=== PATIENT | female | born 1970 | race Caucasian/White ===

== ENCOUNTER 2019-08-10 20:55 | Emergency (ER) | payer MEDICAID ==
[~2019-08-10] VITALS: Ht 165.1 cm; Wt 63.6 kg
[2019-08-10 20:58] VITALS: BP 108/71
[2019-08-10] MEDS ORDERED: rabies immune globulin/PF 150 unit/ml inj IMVAC STA (21:27)
[2019-08-10] MEDS ORDERED: rabies vaccine (PCEC)/PF 2.5 unit kit IMVAC ONE (21:30)
[2019-08-10] MEDS ORDERED: AMOX-422 PO (21:35)
== END 2019-08-10 22:24 | disposition home or self-care (01) ==
LOC: ER 20:57
DX: S61.237A Puncture wound without foreign body of left little finger without damage to nail, initial encounter (principal); Z23 Encounter for immunization; Z56.0 Unemployment, unspecified; Z88.8 Allergy status to other drugs, medicaments and biological substances; Z79.899 Other long term (current) drug therapy; W53.01XA Bitten by mouse, initial encounter; Y93.89 Activity, other specified; Y92.098 Other place in other non-institutional residence as the place of occurrence of the external cause; Y99.8 Other external cause status
CPT/HCPCS: 90375; 90471; 90675; 96372; 99283

== ENCOUNTER 2019-08-12 09:50 | Emergency (ER) | payer MEDICAID ==
[~2019-08-12 09:50] MED LIST: AMOX-422 PO
[2019-08-12] MEDS ORDERED: rabies vaccine (PCEC)/PF 2.5 unit kit IMVAC ONE (10:00)
== END 2019-08-12 10:35 | disposition home or self-care (01) ==
LOC: ER 09:50
DX: Z00.00 Encounter for general adult medical examination without abnormal findings (principal); Z56.0 Unemployment, unspecified; Z88.8 Allergy status to other drugs, medicaments and biological substances; Z79.899 Other long term (current) drug therapy
CPT/HCPCS: 90675; 99281

== ENCOUNTER 2019-08-13 11:11 | Emergency (ER) | payer MEDICAID ==
[~2019-08-13] VITALS: Ht 167.6 cm; Wt 65.0 kg
[2019-08-13 11:17] VITALS: BP 116/61
[2019-08-13] MEDS ORDERED: rabies vaccine (PCEC)/PF 2.5 unit kit IMVAC ONE (11:25)
== END 2019-08-13 11:48 | disposition home or self-care (01) ==
LOC: ER 11:11
DX: Z23 Encounter for immunization (principal); S61.237D Puncture wound without foreign body of left little finger without damage to nail, subsequent encounter; Z56.0 Unemployment, unspecified; Z79.2 Long term (current) use of antibiotics; Z88.8 Allergy status to other drugs, medicaments and biological substances; W53.01XD Bitten by mouse, subsequent encounter
CPT/HCPCS: 90471; 90675; 99283

== ENCOUNTER 2024-06-17 05:22 | Day surgery (SDC) | payer MEDICAID ==
[2024-06-15 15:10] LABS: BASOPHILS # (AUTO) 0.1 X10'3 (0-0.2); EOSINOPHILS # (AUTO) 0.2 X10'3 (0-0.9); EOSINOPHILS % (AUTO) 1.5 % (0-6); LYMPHOCYTES # (AUTO) 2.1 X10'3 (1.1-4.8); LYMPHOCYTES % (AUTO) 19.8 % (21-51); MEAN CORPUSCULAR HEMOGLOBIN 31.2 PG (27.0-31.0); MEAN CORPUSCULAR HGB CONC 33.7 g/dL (33.0-36.5); MEAN CORPUSCULAR VOLUME 92.5 FL (78-98); MEAN PLATELET VOLUME 7.2 FL (7.4-10.4); MONOCYTES # (AUTO) 0.6 X10'3 (0-0.9); MONOCYTES % (AUTO) 5.9 % (2-12); NEUTROPHILS # (AUTO) 7.5 X10'3 (1.8-7.7); NEUTROPHILS % (AUTO) 71.8 % (42-75); PRE OP HEMATOCRIT 41.7 % (35.0-45.0); PRE OP HEMOGLOBIN 14.1 g/dL (12.0-16.0); PRE OP PLATELET COUNT 357 X10'3 (140-440); PRE OP WHITE BLOOD COUNT 10.5 10'3 (4.8-10.8); RED BLOOD COUNT 4.51 X10'6 (4.20-5.60); RED CELL DISTRIBUTION WIDTH 13.8 % (11.5-14.5)
[2024-06-15 15:15] LABS: HCG SERUM QL NEGATIVE
[2024-06-15 15:16] LABS: ALBUMIN 3.7 G/DL (3.4-5.0); ALBUMIN/GLOBULIN RATIO 0.9 (1.1-1.5); ALKALINE PHOSPHATASE 88 IU/L (46-116); BLOOD UREA NITROGEN 15 MG/DL (7-18); CALCIUM 9.1 MG/DL (8.5-10.1); CHLORIDE 101 MMOL/L (99-107); CREATININE 0.88 MG/DL (0.40-0.90); PRE OP ALT 22 U/L (30-65); PRE OP ANION GAP 9 (8-16); PRE OP AST 22 U/L (10-37); PRE OP BILIRUB, TOTAL 0.4 MG/DL (0.0-1.0); PRE OP GLUCOSE 76 MG/DL (70-104); PRE OP POTASSIUM 3.6 MMOL/L (3.4-5.1); PRE OP SODIUM 137 MMOL/L (135-145); TOTAL CARBON DIOXIDE 26.8 MMOL/L (24-32); TOTAL PROTEIN 7.6 G/DL (6.4-8.2); eGFR 67 ML/MIN
[2024-06-17] VITALS (11 sets, daily range): BP systolic 92–107; BP diastolic 55–65; PULSE 54–65; RESP 13–16; TEMP 98.2; O2SAT 97–100
[~2024-06-17] VITALS: Ht 167.6 cm; Wt 64.2 kg
[~2024-06-17 05:22] MED LIST changes: -AMOX-422 PO; +BUPR-561; +ESTR1TAB28; +GABA-530 PO; +LISD60CA; +SERT-434 PO
[2024-06-17] MEDS: famotidine 20mg tablet PO ONE (06:04)
[2024-06-17] MEDS: ringers solution, lacted 1,000 ML IV SCH (06:05)
[2024-06-17] MEDS: cefazolin 2gm/D5W 100mL 100 ML IV ONE (06:05)
[2024-06-17] MEDS ORDERED: BUPIVAcaine 2.5mg/ml inj 50ml vial (contains preservative) ONE (06:48)
[2024-06-17] MEDS ORDERED: LIDOcaine 1% (10mg/ml)w/preservative inj. 20ml MDV ONE (06:48)
[2024-06-17] MEDS ORDERED: BUPIVAcaine 0.25% w/Epi /PF 30ml vial ONE (06:50)
[2024-06-17] MEDS ORDERED: acetaminophen 1,000mg/100ml IV 100 ML IV ONE ×2 (07:20→07:21)
[2024-06-17] MEDS ORDERED: fentaNYL/PF 50MCG/1 ML 2ML syringe ONE (07:20)
[2024-06-17] MEDS ORDERED: midazolam 1 mg/ML 2ml injection ONE (07:20)
[2024-06-17] MEDS ORDERED: LIDOcaine 2% (20mg/ml) 5ml vial ONE (07:21)
[2024-06-17] MEDS ORDERED: dexamethasone sod phosphate 4mg/ml inj. ONE (07:21)
[2024-06-17] MEDS ORDERED: ondansetron/PF 4mg/2ml inj ONE (07:21)
[2024-06-17] MEDS ORDERED: propofol inj 20 ML IV ONE (07:21)
[2024-06-17] MEDS ORDERED: meperidine/PF 25mg/ml syringe IV PRN ×2 (07:25)
[2024-06-17] MEDS ORDERED: morphine 2 MG/ML inj. syringe IV PRN (07:25)
[2024-06-17] MEDS ORDERED: ringers solution, lacted 1,000 ML IV SCH (07:25)
[2024-06-17] MEDS ORDERED: ondansetron/PF 4mg/2ml inj IV PRN (07:25)
[2024-06-17] MEDS ORDERED: labetalol 20mg/4ml (5mg/ml) syringe IV PRN (07:25)
[2024-06-17] MEDS ORDERED: morphine 4 MG/ML inj SYRINge IV PRN (07:25)
[2024-06-17] MEDS ORDERED: sevoflurane 250ml liquid IH ONE (07:30)
[2024-06-17] MEDS: BUPIVAcaine 2.5mg/ml inj 50ml vial (contains preservative) SQ ONE (07:59)
== END 2024-06-17 09:50 | disposition home or self-care (01) ==
LOC: PAS 05:22
PROVIDERS: ATTEND Surgery
DX: R92.8 Other abnormal and inconclusive findings on diagnostic imaging of breast (principal); D05.82 Other specified type of carcinoma in situ of left breast; F41.9 Anxiety disorder, unspecified; F32.A Depression, unspecified; Z79.891 Long term (current) use of opiate analgesic; Z79.899 Other long term (current) drug therapy; Z90.49 Acquired absence of other specified parts of digestive tract; Z88.5 Allergy status to narcotic agent
CPT/HCPCS: 19301; 36415; 80053; 82948; 84703; 85025; 93005; J0131; J0690; J1100; J2250; J2405; J2704; J3010; J3490; J7030; J7120; Z7506; Z7508; Z7512; A4215; A4618; A6449; A7000; S0020

== ENCOUNTER 2024-10-15 12:27 | Emergency (ER) | payer MEDICAID ==
[~2024-10-15] VITALS: Ht 167.6 cm; Wt 54.5 kg
[2024-10-15] MEDS ORDERED: AMOX-580 PO (13:18)
[2024-10-15] MEDS: amox tr/potassium clavulanate 875/125mg TAB PO ONE (13:19)
[2024-10-15] MEDS: tetanus & diphtheria toxoid (Td) vaccine 0.5ml IMVAC ONE (13:19)
[2024-10-15] MEDS: acetaminophen 325mg tablet PO ONE (13:21)
[2024-10-15] MEDS: TETanus/Pertussis (Acell)/Diphther VAC/PF (Tdap-Adult) 0.5ml syringe IMVAC ONE (13:50)
[2024-10-15] MEDS: rabies vaccine (PCEC)/PF 2.5 unit kit IMVAC ONE (13:52)
[2024-10-15] MEDS: rabies immune globulin/PF 150 unit/ml inj IMVAC STA (13:53)
[2024-10-15 14:32] VITALS: BP 129/67; PULSE 68; RESP 16; TEMP 97.5; O2SAT 98
== END 2024-10-15 14:35 | disposition home or self-care (01) ==
LOC: ER 12:28
DX: S41.131A Puncture wound without foreign body of right upper arm, initial encounter (principal); Z20.3 Contact with and (suspected) exposure to rabies; Z88.8 Allergy status to other drugs, medicaments and biological substances; Z79.899 Other long term (current) drug therapy; W54.0XXA Bitten by dog, initial encounter; Y93.89 Activity, other specified; Y92.89 Other specified places as the place of occurrence of the external cause; Y99.8 Other external cause status
CPT/HCPCS: 90376; 90471; 90472; 90675; 90715; 96372; 99284; J7030; A6449

== ENCOUNTER 2024-10-19 17:10 | Emergency (ER) | payer MEDICAID ==
[~2024-10-19 17:10] MED LIST changes: +AMOX-580 PO
== END 2024-10-19 17:34 | disposition left against medical advice (07) ==
LOC: ER 17:11
DX: Z53.21 Procedure and treatment not carried out due to patient leaving prior to being seen by health care provider (principal); Z88.8 Allergy status to other drugs, medicaments and biological substances

== ENCOUNTER 2025-03-14 14:53 | Emergency (ER) | payer MEDICAID ==
[~2025-03-14] VITALS: Ht 167.6 cm; Wt 67.3 kg
[~2025-03-14 14:53] MED LIST changes: -AMOX-580 PO; -BUPR-561; +BUPR-726
[2025-03-14 14:55] VITALS: TEMP 97.8
--- NOTE | 2025-03-14 15:38 | RADIOLOGY REPORT ---
CT CT CHEST INDICATION: PAIN WITH SWALLOWING EXAM DATE: 03/14/2025 03:10 PM COMPARISON: None RADIATION DOSE: CTDIvol: 9 mGy, DLP: 315 mGy*cm PROCEDURE: Helical CT images were obtained of the chest without intravenous contrast. Sagittal and c oronal reconstructions are provided. ADDITIONAL IMAGES / REFORMATS: None All CT scans at this medical facility are performed using dose modulation techniques as appropriate t o a performed exam including the following: Automated exposure control was utilized; adjustment of th e MA and/or KV according to patient size; and use of iterative reconstruction technique. FINDINGS: Bones: Scattered degenerative changes are noted. Visualized Abdomen: Normal. Chest Wall: Normal. Soft tissues: 5 mm right thyroid nodule. Mediastinum: Normal. Heart: Normal. Vessels: Normal. Lymph Nodes: Normal. Pleura: Normal. Airways: Normal. Lung: Normal. Other: None IMPRESSION: No acute intrathoracic abnormality. Esophagus appears within normal limits.
[2025-03-14 16:12] LABS: MEAN PLATELET VOLUME 6.7 FL (7.4-10.4); RED CELL DISTRIBUTION WIDTH 13.9 % (11.5-14.5)
--- NOTE | 2025-03-14 16:12 | Physician Documentation ---
History of Present Illness ~ Chief Complaint: Abdominal Pain Stated Complaint: POSS FOREIGN BODY Time Seen by MD: 16:12 Primary Medical Doctor: Daniela Saeed MD, [facility] Patient is seen today with complaints of dysphagia and odynophagia slowly pro gressing and coming on over the last few months. Patient states he is able to still eat and swallow but she is having pain when swallowing liquids and solids including water. This has a very concerned. She has no other concern or complaint at this time. She denies any nausea or vomiting or abdominal pain or changes in bowel or bladder habits. She denies any shortness of breath Medication Reconciliation Allergies: Coded Allergies: [id number] (Unverified Adverse Reaction, Mild, doesn't feel well, 08/10/19) Scheduled Gabapentin (Gabapentin), 1 CAP PO TID, (Reported) Sertraline HCl (Sertraline HCl), 1 TAB PO BID, (Reported) Miscellaneous Medications Bupropion HCl (Bupropion Xl), (Reported) Discontinued Medications Estradiol (Estradiol), (Reported) Discontinued Reason: patient no longer taking Lisdexamfetamine Dimesylate (Vyvanse), (Reported) Discontinued Reason: patient no longer taking Past Medical History Past Medical History: No Pertinent History Past Surgical History: noncontributory Alcohol Use: None Lives with: Family Lives In: Home Occupation: unemployed Physical Exam Vital Signs: Temperature: 97.8, Source: Temporal, Heart Rate: 72, Respiratory Rate: 18, BP: 117/68, Pulse Oximetry: 99, Weight: 67.270 Oxygen Flow Rate: 0 Progress Results/Orders Results/Orders Orders - PRADEEP BRAVO PAC Ct Chest (03/14/25 15:00) Page Hospitalist (03/14/25 17:52) Fill Out Med Reconciliation (03/14/25 17:52) Completed Orders - PRADEEP BRAVO PAC Cbc/Diff (03/14/25 15:00) Lipase (03/14/25 15:00) CMP (03/14/25 15:00) Ct Chest (03/14/25 15:00) Ua W/Microscopic, Cult If Ind (03/14/25 18:10) Vital Signs 03/14/25 03/14/25 03/14/25 03/14/25 14:55 17:42 17:45 19:32 Temp 97.8 Pulse 72 64 68 Resp 18 18 16 B/P (MAP) 117/68 123/73 (90) 126/76 (93) Pulse Ox 99 99 98 O2 Flow Rate 0 0 03/14/25 19:33 Resp 16 B/P (MAP) Laboratory Tests Test 03/14/25 15:23 03/14/25 18:10 White Blood Count 9.7 Red Blood Count 4.49 Hemoglobin 13.7 Hematocrit 40.0 Mean Corpuscular Volume 89.2 Mean Corpuscular Hemoglobin 30.4 Mean Corpuscular Hemoglobin Concent 34.1 Red Cell Distribution Width 13.9 Platelet Count 414 Mean Platelet Volume 6.7 L Neutrophils (%) (Auto) 66.9 Lymphocytes (%) (Auto) 21.1 Monocytes (%) (Auto) 6.7 Eosinophils (%) (Auto) 4.4 Basophils (%) (Auto) 0.9 Neutrophils # (Auto) 6.5 Lymphocytes # (Auto) 2.0 Monocytes # (Auto) 0.6 Eosinophils # (Auto) 0.4 Basophils # (Auto) 0.1 CBC Comment Sodium Level 143 Potassium Level 3.6 Chloride Level 105 Carbon Dioxide Level 31.4 Anion Gap 7 L Blood Urea Nitrogen 14 Creatinine 1.04 H Estimated GFR/1.73 m2 55 BUN/Creatinine Ratio 13.5 Glucose Level 69 L Calcium Level 9.2 Total Bilirubin 0.3 Aspartate Amino Transf (AST/SGOT) 15 Alanine Aminotransferase (ALT/SGPT) 23 Alkaline Phosphatase 100 Total Protein 7.7 Albumin 3.5 Globulin 4.2 Albumin/Globulin Ratio 0.8 L Lipase 42 Chemistry Comments Urine Specimen Description Non-specified Urine Color Yellow Urine Clarity Slightly cloudy Urine pH 7.0 Urine Specific [place] 1.010 Urine Protein Negative Urine Glucose (UA) Negative Urine Ketones Trace H Urine Occult Blood Negative Urine Nitrite Negative Urine Bilirubin Negative Urine Urobilinogen 0.2 Urine Leukocyte Esterase Negative Urine RBC 0-2 Urine WBC 0-4 Urine Squamous Epithelial Cells Few Urine Amorphous Urates 2+ Urine Bacteria None seen Urine Mucus Few Urine Culture Indicated Not ind Volume Urine Centrifuged 10 ml Urine Comment Medical Decision Making Findings Patient is seen today with complaints of dysphagia and odynophagia slowly progressing and coming on over the last few months. Patient states he is able to still eat and swallow but she is having pain when swallowing liquids and solids including water. This has a very concerned. She has no other concern or complaint at this time. She denies any nausea or vomiting or abdominal pain or changes in bowel or bladder habits. She denies any shortness of breath. Patient states he is able to eat however it is just painful. Patient has no other concern or complaint at this time. Patient did have labs drawn today that returned largely unremarkable as well as had CT scan of the chest that was also unremarkable without any acute findings. I did consult the hospitalist for further eval and treatment however hospitalist felt the patient's symptoms and issues could be safely followed up outpatient. Patient will follow up with primary care for referral to GI specialist for upper endoscopy as well as swallowing studies and will return to ED with any worsening, concerning or changing symptoms. Patient voiced understanding. Departure Disposition: HOME / SELF CARE / HOMELESS Impression: Primary Impression: Odynophagia Condition: Stable Discharge Instructions: Dysphagia Eating Plan, Minced and Moist Foods Additional Instructions: Patient did have labs drawn today that returned largely unremarkable as well as had CT scan of the chest that was also unremarkable without any acute findings. I did consult the hospitalist for further eval and treatment however hospitalist felt the patient's symptoms and issues could be safely followed up outpatient. Patient will follow up with primary care for referral to GI specialist for upper endoscopy as well as swallowing studies and will return to ED with any w orsening, concerning or changing symptoms. Patient voiced understanding. Referrals: NO PRIMARY CARE PROVIDER (PCP) Signature Scribe Signature: No scribe Attestation: No scribe PRADEEP BRAVO PAC Mar 14, 2025 16:12
[2025-03-14 16:29] LABS: CREATININE 1.04 MG/DL (0.40-0.90); TOTAL CARBON DIOXIDE 31.4 MMOL/L (24-32); eCRCL 57 ML/MIN; eGFR 55 ML/MIN
[2025-03-14 19:14] LABS: LEUKOCYTE ESTERASE ,URINE NEGATIVE (Neg); NITRITES, URINE NEGATIVE (Neg); OCCULT BLOOD,URINE NEGATIVE (Neg)
[2025-03-14 19:20] LABS: UA COLLECTION TYPE NON-SPECIFIED
[2025-03-14 19:50] LABS: AMORPHOUS URATES 2+; MUCUS STRANDS FEW /LPF (Neg); SQUAMOUS EPITHELIAL CELL,UR FEW /LPF (FEW)
[2025-03-14 20:49] VITALS: BP 125/79; PULSE 57; RESP 18; O2SAT 98
== END 2025-03-14 20:51 | disposition home or self-care (01) ==
LOC: ER 14:53
DX: R13.10 Dysphagia, unspecified (principal); Z88.8 Allergy status to other drugs, medicaments and biological substances; Z79.899 Other long term (current) drug therapy; Z56.0 Unemployment, unspecified
CPT/HCPCS: 36415; 71250; 80053; 81001; 83690; 85025; 99284